=== PATIENT | male | born 1945 | race Caucasian/White ===

== ENCOUNTER 2018-11-24 13:25 | Observation (INO) ==
[2018-11-24] MEDS ORDERED: Sod Chloride 0.9% Inj 1,000 ML IV.CONT SCH (14:30)
--- NOTE | 2018-11-24 14:31 | ED ---
HPI General Chief complaint: Abdominal Pain Stated complaint: Abd pain/N/D since Thursday Time Seen by Provider: 11/24/18 14:25 Source: patient Mode of arrival: ambulatory Limitations: no limitations History of Present Illness HPI narrative: This 73-year-old male is complaining of abdominal pain. He has been having pain since Thursday. It is intermittent and somewhat migratory pain. He can be quite severe at times and other times is not so bad. It was very severe last night. Was again bad this morning pain is crampy in nature. It is aggravated when he eats. He has been belching more than usual. He feels like his stomach is distended. He has no history of abdominal surgery. He finished a course of amoxicillin yesterday which she took for sinus infection. He had a bowel movement this morning. He has had 3 colonoscopies in the past he thinks the last one was about 5 years ago and he is due for one. He drinks occasionally. He says the pain did not start after alcohol use Related Data Home Medications Medication Instructions Recorded Confirmed [id number]-[id number] 1 tab PO DAILY 11/24/18 11/24/18 [Multivitamin 50 Plus] Allergies Allergy/AdvReac Type Severity Reaction Status Date / Time No Known Allergies Allergy Verified 11/24/18 13:33 Review of Systems ROS: all other systems reviewed are negative [facility] Medical History Medical History Cervical herniated disc (Acute) Surgical History Surgical History H/O eye surgery (Acute) History of arthroscopy of both knees (Acute) Hx of tonsillectomy (Acute) Social History Social History Substance History: No History of Abuse Second Hand Smoke Exposure: No Smoking Status: Former smoker How Often Do You Have a Drink Containing Alcohol: 2 to 3 times a week Recent Travel in [facility] within the Last 8 Weeks: No Recent Out of Country Travel within the Last 8 Weeks: No Immunization History Tetanus Immunization: Unsure Exam Narrative Exam Narrative: GENERAL: Well-developed male SKIN: Focused skin assessment warm/dry. HEAD: Atraumatic. Normocephalic. EYES: Pupils equal and round. No scleral icterus. No injection or drainage. ENT: No nasal bleeding or discharge. Mucous membranes pink and moist. NECK: Trachea midline. No JVD. CARDIOVASCULAR: Regular rate and rhythm. No murmur appreciated. RESPIRATORY: No accessory muscle use. Clear to auscultation. Breath sounds equal bilaterally. GASTROINTESTINAL: Abdomen soft, there is some mild distention. He is tenderness without guarding or rigidity no hernias are felt. Bowel sounds diminished MUSCULOSKELETAL: No obvious deformities. No clubbing. No cyanosis. No edema. NEUROLOGICAL: Awake and alert. No obvious cranial nerve deficits. Motor grossly within normal limits. Normal speech. PSYCHIATRIC: Appropriate mood and affect; insight and judgment normal. Course Initial Documented Vital Signs Temperature 97.9 F 11/24/18 13:28 Pulse Rate 68 11/24/18 13:28 Respiratory Rate 16 11/24/18 13:28 Blood Pressure 138/94 H 11/24/18 13:28 Pulse Oximetry 96 11/24/18 13:28 Last Documented Vital Signs Temperature 97.9 F 11/24/18 13:28 Pulse Rate 70 11/24/18 15:21 Respiratory Rate 16 11/24/18 15:21 Blood Pressure 120/72 11/24/18 15:21 Pulse Oximetry 96 11/24/18 15:21 Sign Out Sign Out Data: Patient Sign Out occurred on 11/24/18 at 16:11. Patient's care was discussed, and care was transferred from Augustin Garibay MD to Kehinde De La Torre. Sign Out Comment: This gentleman presented with abdominal pain. His lipase is elevated at 1000. He is not a heavy drinker. CT scan and ultrasound are pending for further evaluation. He is having intermittent abdominal pain Last updated by Augustin Garibay MD at 11/24/18 15:53 Post-Handoff Eval: Received the patient at shift change for the following evaluation. CBC shows no evidence of leukocytosis no anemia no left shift and no evidence of any abnormal platelet count UA is negative for any evidence of UTI Electrolytes are within normal limits. Normal kidney and liver functions Elevated lipase consistent with pancreatitis at 1148 Although bilirubin and alk phos are within normal limits. Ultrasound read by radiologist as simple right renal cyst, punctate nonobstructive right renal calculi, echogenic liver most characteristic of hepatic steatosis, specifically no evidence of any pericholecystic fluid nor any thickened gallbladder wall nor any gallstones. Medical Decision Making MDM Narrative Medical decision making narrative: Lipase level is elevated to 1000. Medical Screen Exam Complete: Yes Emergency Medical Condition: Yes Differential Diagnosis Differential Diagnosis: Differential includes small bowel obstruction, pancreatitis, diverticulitis Lab Data Result diagrams: 11/24/18 14:50 11/24/18 14:50 Lab Results 11/24/18 11/24/18 11/24/18 Range/Units 14:30 14:50 14:50 CBC w Diff Auto diff final WBC 7.5 (4.0-11.0) th/mm3 RBC 5.33 (4.50-5.90) mil/mm3 Hgb 15.5 (13.0-17.0) gm/dL Hct 47.7 (39.0-51.0) % MCV 89.5 (80.0-100.0) fL MCH 29.1 (27.0-34.0) pg MCHC 32.5 (32.0-36.0) % RDW 12.6 (11.6-17.2) % Plt Count 278 (150-450) th/mm3 MPV 7.3 (7.0-11.0) fL Neut % (Auto) 67.1 (16.0-70.0) % Lymph % (Auto) 22.3 (9.0-44.0) % [place] % (Auto) 5.8 (0.0-8.0) % Eos % (Auto) 4.4 H (0.0-4.0) % Baso % (Auto) 0.4 (0.0-2.0) % Neut # (Auto) 5.1 (1.8-7.7) th/mm3 Lymph # (Auto) 1.7 (1.0-4.8) th/mm3 [place] # (Auto) 0.4 (0.0-0.9) th/mm3 Eos # (Auto) 0.3 (0.0-0.4) th/mm3 Baso # (Auto) 0.0 (0.0-0.2) th/mm3 WBC Differential . Differential Comment . Sodium 139 (136-145) meq/L Potassium 3.7 (3.5-5.1) meq/L Chloride 110 H (98-107) meq/L Carbon Dioxide 24.2 (21.0-32.0) meq/L Anion Gap 5 (5-15) meq/L BUN 15 (7-18) mg/dL Creatinine 0.87 (0.60-1.30) mg/dL Estimated GFR 87 L (>89) mL/min Random Glucose 135 H (74-106) mg/dL Calcium 8.3 L (8.5-10.1) mg/dL Magnesium 2.0 (1.5-2.5) mg/dL Total Bilirubin 0.3 (0.2-1.0) mg/dL AST 14 L (15-37) U/L ALT 31 (12-78) U/L Alkaline Phosphatase 62 (45-117) U/L Total Protein 6.5 (6.4-8.2) g/dL Albumin 3.2 L (3.4-5.0) g/dL Lipase 1148 H (73-393) U/L Ur Collection Type Clean catch Urine Color Yellow (Yellw/Straw) Urine Clarity Clear (Clear) Urine pH 5.5 (5.0-8.5) Ur Specific [place] Greater/equal 1.030 (1.002-1.035) Urine Protein Negative (Neg-Trace) mg/dL Urine Glucose (UA) Negative (Negative) mg/dL Urine Ketones Trace H (Negative) mg/dL Urine Occult Blood Trace (Negative) Urine Nitrate Negative (Negative) Urine Bilirubin Negative (Negative) Urine Urobilinogen 0.2 (Less than 2) mg/dL Ur Leukocyte Esterase Negative (Negative) Urine RBC 0-3 (0-3) /hpf Ur Squamous Epith Cells 0-5 (0-5) /hpf Micro UA Comment Culture not ind Ur Microscopic Review Microscopic reviewed Urine Culture Comments Culture not ind Imaging Data Radiologist's impression: Gallbladder Ultrasound 11/24/18 15:29 CONCLUSION: 1. Simple right renal cyst. 2. Punctate nonobstructing right renal calculi. 3. Echogenic liver most characteristic of hepatic steatosis. Discharge Plan Discharge Disposition Patient Disposition: ED Admit(ED Internal Use Only) Discharge Condition Condition: Stable Discharge Details Diagnosis: Pancreatitis Physicians Team ED Provider: Kehinde De La Torre Rxs /Orders / Referrals /Forms Prescriptions: No Action [id number] [Multivitamin 50 Plus] Tablet 1 tab PO DAILY RF: 0 Discharge Interventions Interventions: Vital Signs Last Done: 11/24/18 15:21 Status ED Status: With Doctor
[2018-11-24 15:04] LABS: Baso % (Auto) 0.4 % (0.0-2.0); Eos # (Auto) 0.3 th/mm3 (0.0-0.4); Eos % (Auto) 4.4 % (0.0-4.0); Hematocrit 47.7 % (39.0-51.0); Hemoglobin 15.5 gm/dL (13.0-17.0); Lymph # (Auto) 1.7 th/mm3 (1.0-4.8); Lymph % (Auto) 22.3 % (9.0-44.0); Mean Corpuscular HGB Conc 32.5 % (32.0-36.0); Mean Corpuscular Hemoglobin 29.1 pg (27.0-34.0); Mean Corpuscular Volume 89.5 fL (80.0-100.0); Mean Platelet Volume 7.3 fL (7.0-11.0); Mono # (Auto) 0.4 th/mm3 (0.0-0.9); Mono % (Auto) 5.8 % (0.0-8.0); Neut # (Auto) 5.1 th/mm3 (1.8-7.7); Neut % (Auto) 67.1 % (16.0-70.0); Platelet Count 278 th/mm3 (150-450); Red Blood Count 5.33 mil/mm3 (4.50-5.90); Red Cell Distribution Width 12.6 % (11.6-17.2); White Blood Count 7.5 th/mm3 (4.0-11.0)
[2018-11-24 15:06] LABS: Bilirubin,Urine Negative (Negative); Clarity,Urine Clear (Clear); Color,Urine Yellow (Yellw/Straw); Glucose,Urine (UA) Negative (Negative); Leukocyte Esterase,Urine Negative (Negative); Nitrite,Urine Negative (Negative); PH,Urine 5.5 (5.0-8.5); Specific Gravity,Urine Greater/Equal 1.030 (1.002-1.035); Urobilinogen,Urine 0.2 mg/dL (Less than 2)
[2018-11-24 15:19] LABS: Chloride 110 meq/L (98-107); Potassium 3.7 meq/L (3.5-5.1); Sodium 139 meq/L (136-145)
[2018-11-24 15:23] LABS: Albumin 3.2 g/dL (3.4-5.0); Anion Gap 5 meq/L (5-15); Blood Urea Nitrogen 15 mg/dL (7-18); Calcium 8.3 mg/dL (8.5-10.1); Carbon Dioxide 24.2 meq/L (21.0-32.0); Glucose,Random 135 mg/dL (74-106); Lipase 1148 U/L (73-393)
[2018-11-24 15:24] LABS: RBC,Urine 0-3 /hpf (0-3); Squamous Epithelial Cell,Urine 0-5 /hpf (0-5)
[2018-11-24 15:26] LABS: Alanine Aminotransferase 31 U/L (12-78); Aspartate Aminotransferase 14 U/L (15-37); Glomerular Filtration Rate 87 mL/min (>89)
[2018-11-24 15:28] LABS: Total Protein 6.5 g/dL (6.4-8.2)
[2018-11-24 15:29] LABS: Alkaline Phosphatase 62 U/L (45-117)
--- NOTE | 2018-11-24 16:18 | US ---
EXAM DATE: 11/24/2018 4:04 PM EST AGE/SEX: 73 years / Male INDICATIONS: Elevated lipase; gallstones. Abdominal pain. CLINICAL DATA: This is the patient's initial encounter. Patient reports that signs and symptoms have been present for 4 - 6 days and indicates a pain score of 5/10. MEDICAL/SURGICAL HISTORY: . Cervical herniated disk. . Eye surgery. Arthroscopy of both knees . Tonsillectomy. COMPARISON: No prior exams available for comparison. MEASUREMENTS: Liver:__ 17.0 cm. Common Bile Duct:__ 5mm. FINDINGS: Liver: Increased echogenicity without focal lesion or ductal dilatation. Portal Vein: Hepatopedal flow seen in portal vein. Common Duct: No intraluminal mass or stone visualized. Gallbladder: Demonstrates no wall thickening or pericholecystic fluid. No stones visualized. Pancreas: Visualized portions unremarkable. Right Kidney: Normal echogenicity without hydronephrosis. Simple cyst measures 4.9 cm. Several echog enic foci along the lower pole noted. Other: No ascites CONCLUSION: 1. Simple right renal cyst. 2. Punctate nonobstructing right renal calculi. 3. Echogenic liver most characteristic of hepatic steatosis. Electronically signed by: Eduardo Cross MD Board Certified Radiologist 11/24/2018 4:17 PM EST
[2018-11-24] MEDS ORDERED: Acetaminophen 325 MG Tablet PO PRN (17:17)
--- NOTE | 2018-11-24 17:41 | P.HPIM ---
History of Present Illness Primary Care Physician: Dannielle Junior Chief Complaint: Abdominal Pain History of Present Illness: Mr. Winter is a 73-year-old male. He is at the hospital secondary to abdominal pain. Lab work shows elevated lipase. He does not have a previous history of pancreatitis. Ultrasound shows no evidence of bile duct dilation or stone or biliary obstruction. he has no recent exposure to alcohol. He drinks alcohol occasionally never abusing alcohol. His last drink was about 4 days ago. He says for about 3 days he has been having some GI upset including some mild diarrhea followed by a day of nausea. Today he had acute onset of abdominal pain in his upper abdomen. He has no prior history of pancreatitis. CT scan is pending. Review of Systems Constitutional: No fevers, no chills no night sweats, no fatigue, no weakness Eyes: No eye pain, no blurry vision, no loss of vision ENT: No sore throat, no ear pain, no rhinorrhea Cardiovascular: No chest pain, no tachycardia, no palpitations, no syncope Respiratory: No wheezing, no cough, no shortness of breath Gastrointestinal: abdominal pain, no black tarry stools, no bright red blood per rectum, no vomiting, no diarrhea Musculoskeletal: No joint pain, no muscle cramps, no stiffness Integumentary: No rash, no ulcers, no drainage Neurologic: No sensory loss, no loss of motor function, no dizziness Psychiatric: No behavioral changes, no hallucinations, no suicidal ideations [facility] Medical History Medical History Cervical herniated disc (Acute) Surgical History Surgical History H/O eye surgery (Acute) History of arthroscopy of both knees (Acute) Hx of tonsillectomy (Acute) Social History Social History Substance History: No History of Abuse Second Hand Smoke Exposure: No Smoking Status: Former smoker How Often Do You Have a Drink Containing Alcohol: 2 to 3 times a week Recent Travel in [facility] within the Last 8 Weeks: No Recent Out of Country Travel within the Last 8 Weeks: No Immunization History Tetanus Immunization: Unsure Medications and Allergies Allergies Allergy/AdvReac Type Severity Reaction Status Date / Time No Known Allergies Allergy Verified 11/24/18 13:33 Home Medications Medication Instructions Recorded Confirmed Type [id number]-[id number]-[id number] 1 tab PO DAILY 11/24/18 11/24/18 History [Multivitamin 50 Plus] Active Medications: Active Medications Acetaminophen (Tylenol) 650 mg PO Q4H PRN PRN Reason: Temp > 100.4 Hydrocodone Bitart/Acetaminophen ([place] 10/325) 1 tab PO Q4H PRN PRN Reason: Pain 7 to 10 Hydrocodone Bitart/Acetaminophen ([place] 5/325) 1 tab PO Q4H PRN PRN Reason: Pain 3 to 6 Al Hydroxide/Mg Hydroxide (Milk Of Jacquie Foster) 30 ml PO Q12H PRN PRN Reason: Mild Constipation Sodium Chloride (Ns Inj) 1,000 mls @ 100 mls/hr IV.CONT .Q10H CARMITA Ondansetron HCl (Zofran Inj) 4 mg IV.PUSH Q6H PRN PRN Reason: NAUSEA OR VOMITING Sodium Chloride (Ns Flush) 2 ml IV.FLUSH BID CARMITA Sodium Chloride (Ns Flush) 2 ml IV.FLUSH PRN PRN PRN Reason: FLUSH AFTER USING IV ACCESS Physical Exam Vital signs: Vital Signs 11/24/18 13:28 11/24/18 15:21 Temperature 97.9 F Pulse Rate 68 70 Respiratory Rate 16 16 Blood Pressure 138/94 H 120/72 Pulse Oximetry 96 96 Intake & Output 11/23/18 11/24/18 11/24/18 18:59 06:59 18:59 Weight 93 kg Narrative: GENERAL: NAD, A&Ox3 HEAD: Normocephalic. NECK: Supple, trachea midline. No lymphadenopathy. EYES: No scleral icterus. No injection or drainage. CARDIOVASCULAR: Regular rate and rhythm without murmurs, gallops, or rubs. RESPIRATORY: Breath sounds equal bilaterally. No accessory muscle use. GASTROINTESTINAL: Abdomen soft, no distention. Mild abdominal tenderness is present in the epigastrium. MUSCULOSKELETAL: No cyanosis, or edema. SKIN: Warm and dry. NEURO: No focal neurological deficits. Results Labs CBC & Chem 7: 11/24/18 14:50 11/24/18 14:50 Imaging Impressions Gallbladder Ultrasound 11/24/18 15:29 CONCLUSION: 1. Simple right renal cyst. 2. Punctate nonobstructing right renal calculi. 3. Echogenic liver most characteristic of hepatic steatosis. Caprini VTE Risk Assessment Caprini VTE Risk Assessment: No/Low Risk (score <= 1) Caprini Risk Assessment Model: Point Value = 1 Point Value = 2 Point Value = 3 Point Value = 5 Age 41-60 Minor surgery BMI > 25 kg/m2 Swollen legs Varicose veins or History of unexplained or recurrent spontaneous Oral contraceptives or hormone replacement Sepsis (< 1 month) Serious lung disease, including pneumonia (< 1 month) Abnormal pulmonary function Acute myocardial infarction Congestive heart failure (< 1 month) History of inflammatory bowel disease Medical patient at bed rest Age 61-74 Arthroscopic surgery Major open surgery (> 45 min) Laparoscopic surgery (> 45 min) Malignancy Confined to bed (> 72 hours) Immobilizing plaster cast Central venous access Age >= 75 History of VTE Family history of VTE Factor V Leiden Prothrombin [id number] Lupus anticoagulant Anticardiolipin antibodies Elevated serum homocysteine Heparin-induced thrombocytopenia Other congenital or acquired thrombophilia Stroke (< 1 month) Elective arthroplasty Hip, pelvis, or leg fracture Acute spinal cord injury (< 1 month) Prophylaxis Regimen: Total Risk Factor Score Risk Level Prophylaxis Regimen 0-1 Low Early ambulation 2 Moderate Order ONE of the following: *Sequential Compression Device (SCD) *Heparin 5000 units SQ BID 3-4 Higher Order ONE of the following medications: *Heparin 5000 units SQ TID *Enoxaparin/Lovenox 40 mg SQ daily (WT < 150 kg, CrCl > 30 mL/min) *Enoxaparin/Lovenox 30 mg SQ daily (WT < 150 kg, CrCl > 10-29 mL/min) *Enoxaparin/Lovenox 30 mg SQ BID (WT < 150 kg, CrCl > 30 mL/min) AND/OR *Sequential Compression Device (SCD) 5 or more Highest Order ONE of the following medications: *Heparin 5000 units SQ TID (Preferred with Epidurals) *Enoxaparin/Lovenox 40 mg SQ daily (WT < 150 kg, CrCl > 30 mL/min) *Enoxaparin/Lovenox 30 mg SQ daily (WT < 150 kg, CrCl > 10-29 mL/min) *Enoxaparin/Lovenox 30 mg SQ BID (WT < 150 kg, CrCl > 30 mL/min) AND *Sequential Compression Device (SCD) Assessment and Plan Plan 73-year-old male admitted secondary to acute pancreatitis without prior medical history Acute pancreatitis IV hydration As needed pain treatments Low-fat diet Monitor lipase levels If no improvement in lipase overnight will consider further workup including HIDA scan DVT prophylaxis SCDs
--- NOTE | 2018-11-24 17:58 | CT ---
EXAM DATE: 11/24/2018 5:48 PM EST AGE/SEX: 73 years / Male INDICATIONS: Generalized abdominal pain for 5 days. CLINICAL DATA: This is the patient's initial encounter. Patient reports that signs and symptoms have been present for 4 - 6 days and indicates a pain score of 5/10. MEDICAL/SURGICAL HISTORY: None. Tonsillectomy. ORAL CONTRAST: No oral contrast ingested. RADIATION DOSE: 18.02 CTDI (mGy) COMPARISON: No prior exams available for comparison. TECHNIQUE: Multiple contiguous axial images were obtained through the abdomen and pelvis following b olus infusion of 91 ml Omnipaque 350 (iohexol) nonionic water-soluble contrast as a single exam dos e. No oral contrast ingested. Using automated exposure control and adjustment of the mA and/or kV ac cording to patient size, radiation dose was kept as low as reasonably achievable to obtain optimal di agnostic quality images. DICOM format image data is available electronically for review and comparis on. FINDINGS: Lower Lungs: 5 mm pleural-based nodular density in the posterior left lower lobe. Liver: Punctate calcification in the left lobe of the liver. Mild diffuse hepatic hypodensity indicat ing hepatic steatosis. Gallbladder within normal limits. Spleen: Homogeneous density without enlargement. Pancreas: Unremarkable without mass or calcification. Kidneys: 3.8 cm exophytic posterior right mid pole cyst. Several subcentimeter rounded hypodensities in the kidneys too small to characterize but statistically most likely to represent cysts. No eviden ce of hydronephrosis. Adrenal Glands: Unremarkable. Aorta: The aorta and proximal iliac vessels are grossly unremarkable without aneurysmal dilation. Bowel/Mesentery: No evidence of bowel dilatation. No free air or free fluid. Appendix within normal limits. There is diffuse hazy opacity in the mesentery centrally along with multiple subcentimeter me senteric lymph nodes. Abdominal Wall: Intact. Retroperitoneum: No evidence of adenopathy in the retrocrural, para-aortic, or deep pelvic regions. Bladder: Contours are smooth. Reproductive Organs: Enlarged prostate measuring 5 cm in greatest transverse dimension. Inguinal: The inguinal region is unremarkable without evidence of adenopathy. Bony Structures: Osteoarthritic findings of the right sacroiliac joint and mild osteoarthritic findi ngs of the hips. CONCLUSION: 1. "Sun mesentery" appearance with mildly prominent mesenteric lymph nodes are likely reactive. Fi ndings are nonspecific but can be seen with venous congestion and mesenteric adenitis. Lymph nodes do not meet size criteria for pathologic lymphadenopathy. 2. Enlarged prostate. 3. Mild hepatic steatosis. 4. 5 mm pleural based nodular density in the left lower lobe. Recommend a follow-up noncontrast ches t CT. Electronically signed by: Gil Reynoso MD Board Certified Radiologist 11/24/2018 5:56 PM EST
[2018-11-24] MEDS: Sod Chloride 0.9% Inj 1,000 ML IV.CONT SCH ×2 (20:51→23:49)
[2018-11-25] MEDS: Sod Chloride 0.9% Inj 1,000 ML IV.CONT SCH (05:21)
[2018-11-25 08:03] LABS: Baso % (Auto) 0.1 % (0.0-2.0); Eos # (Auto) 0.5 th/mm3 (0.0-0.4); Eos % (Auto) 6.3 % (0.0-4.0); Hematocrit 43.5 % (39.0-51.0); Hemoglobin 14.9 gm/dL (13.0-17.0); Lymph # (Auto) 2.3 th/mm3 (1.0-4.8); Lymph % (Auto) 29.8 % (9.0-44.0); Mean Corpuscular HGB Conc 34.3 % (32.0-36.0); Mean Corpuscular Hemoglobin 30.8 pg (27.0-34.0); Mean Corpuscular Volume 89.7 fL (80.0-100.0); Mean Platelet Volume 7.2 fL (7.0-11.0); Mono # (Auto) 0.5 th/mm3 (0.0-0.9); Mono % (Auto) 6.9 % (0.0-8.0); Neut # (Auto) 4.3 th/mm3 (1.8-7.7); Neut % (Auto) 56.9 % (16.0-70.0); Platelet Count 248 th/mm3 (150-450); Red Blood Count 4.84 mil/mm3 (4.50-5.90); White Blood Count 7.6 th/mm3 (4.0-11.0)
[2018-11-25 08:06] LABS: Chloride 110 meq/L (98-107); Potassium 3.6 meq/L (3.5-5.1); Sodium 140 meq/L (136-145)
[2018-11-25 08:10] LABS: Albumin 2.9 g/dL (3.4-5.0); Anion Gap 4 meq/L (5-15); Blood Urea Nitrogen 11 mg/dL (7-18); Calcium 8.1 mg/dL (8.5-10.1); Carbon Dioxide 25.7 meq/L (21.0-32.0); Glucose,Random 87 mg/dL (74-106); Lipase 289 U/L (73-393)
[2018-11-25 08:13] LABS: Alanine Aminotransferase 28 U/L (12-78); Aspartate Aminotransferase 14 U/L (15-37); Glomerular Filtration Rate Greater Than 89 mL/min (>89)
[2018-11-25 08:16] LABS: Alkaline Phosphatase 60 U/L (45-117)
--- NOTE | 2018-11-25 10:41 | P.DS ---
DS: Providers Date of admission: 11/24/18 16:41 Primary care physician: Dannielle Junior Brief History from admission: Mr. Winter is a 73-year-old male. He is at the hospital secondary to abdominal pain. Lab work shows elevated lipase. He does not have a previous history of pancreatitis. Ultrasound shows no evidence of bile duct dilation or stone or biliary obstruction. he has no recent exposure to alcohol. He drinks alcohol occasionally never abusing alcohol. His last drink was about 4 days ago. He says for about 3 days he has been having some GI upset including some mild diarrhea followed by a day of nausea. Today he had acute onset of abdominal pain in his upper abdomen. He has no prior history of pancreatitis. CT scan is pending. DS: Summary Mr. Winter is a 73-year-old male. He was admitted secondary to acute pancreatitis. Based on history etiology of pancreatitis was suspected to be viral. IV hydration overnight has caused resolution of his elevated lipase levels. Patient reports that he has resolution of his pain symptoms. Imaging revealed no apparent involvement of the biliary system and a CT scan showed no pancreatic or biliary pathology. CT scan did show some mesenteric inflammation which is likely reactive. Additionally he had a 5 mm nodule at the left lung base. This is discussed with the patient. 3-month CT order for comparison provided. At this point medically the patient stable and cleared for discharge to home. Discharge today. Time Spent with Patient Total time spent providing and/or coordinating discharge services: Less than 30 minutes Quality: VTE Deep Vein Thrombosis/Pulmonary Embolism Present on Admission: No Results Labs on day of discharge: Labs from last 24 hours 11/25/18 11/25/18 11/24/18 07:09 07:09 14:50 CBC w Diff Auto diff final WBC 7.6 RBC 4.84 Hgb 14.9 Hct 43.5 MCV 89.7 MCH 30.8 MCHC 34.3 RDW 12.0 Plt Count 248 MPV 7.2 Neut % (Auto) 56.9 Lymph % (Auto) 29.8 [place] % (Auto) 6.9 Eos % (Auto) 6.3 H Baso % (Auto) 0.1 Neut # (Auto) 4.3 Lymph # (Auto) 2.3 [place] # (Auto) 0.5 Eos # (Auto) 0.5 H Baso # (Auto) 0.0 WBC Differential . Differential Comment . Sodium 140 139 Potassium 3.6 3.7 Chloride 110 H 110 H Carbon Dioxide 25.7 24.2 Anion Gap 4 L 5 BUN 11 15 Creatinine 0.83 0.87 Estimated GFR Greater than 89 87 L Random Glucose 87 135 H Calcium 8.1 L 8.3 L Magnesium 2.0 Total Bilirubin 0.5 0.3 AST 14 L 14 L ALT 28 31 Alkaline Phosphatase 60 62 Total Protein 6.0 L 6.5 Albumin 2.9 L 3.2 L Lipase 289 1148 H Ur Collection Type Urine Color Urine Clarity Urine pH Ur Specific [place] Urine Protein Urine Glucose (UA) Urine Ketones Urine Occult Blood Urine Nitrate Urine Bilirubin Urine Urobilinogen Ur Leukocyte Esterase Urine RBC Ur Squamous Epith Cells Micro UA Comment Ur Microscopic Review Urine Culture Comments 11/24/18 11/24/18 14:50 14:30 CBC w Diff Auto diff final WBC 7.5 RBC 5.33 Hgb 15.5 Hct 47.7 MCV 89.5 MCH 29.1 MCHC 32.5 RDW 12.6 Plt Count 278 MPV 7.3 Neut % (Auto) 67.1 Lymph % (Auto) 22.3 [place] % (Auto) 5.8 Eos % (Auto) 4.4 H Baso % (Auto) 0.4 Neut # (Auto) 5.1 Lymph # (Auto) 1.7 [place] # (Auto) 0.4 Eos # (Auto) 0.3 Baso # (Auto) 0.0 WBC Differential . Differential Comment . Sodium Potassium Chloride Carbon Dioxide Anion Gap BUN Creatinine Estimated GFR Random Glucose Calcium Magnesium Total Bilirubin AST ALT Alkaline Phosphatase Total Protein Albumin Lipase Ur Collection Type Clean catch Urine Color Yellow Urine Clarity Clear Urine pH 5.5 Ur Specific [place] Greater/equal 1.030 Urine Protein Negative Urine Glucose (UA) Negative Urine Ketones Trace H Urine Occult Blood Trace Urine Nitrate Negative Urine Bilirubin Negative Urine Urobilinogen 0.2 Ur Leukocyte Esterase Negative Urine RBC 0-3 Ur Squamous Epith Cells 0-5 Micro UA Comment Culture not ind Ur Microscopic Review Microscopic reviewed Urine Culture Comments Culture not ind Impressions ITS Impressions Abdomen/Pelvis CT 11/24/18 14:25 CONCLUSION: 1. "Sun mesentery" appearance with mildly prominent mesenteric lymph nodes are likely reactive. Findings are nonspecific but can be seen with venous congestion and mesenteric adenitis. Lymph nodes do not meet size criteria for pathologic lymphadenopathy. 2. Enlarged prostate. 3. Mild hepatic steatosis. 4. 5 mm pleural based nodular density in the left lower lobe. Recommend a follow-up noncontrast chest CT. Gallbladder Ultrasound 11/24/18 15:29 CONCLUSION: 1. Simple right renal cyst. 2. Punctate nonobstructing right renal calculi. 3. Echogenic liver most characteristic of hepatic steatosis. Discharge Plan Discharge Disposition Patient Disposition: 01 Discharge Home Discharge Condition Condition: Stable Discharge Order Discharge Orders: Discharge Order (Routine); Ordered 11/25/18 Ordered By: Marlon Reyes Discharge Details Anticipated Discharge Date: 11/25/18 Physicians Team Attending Provider: Marlon Reyes Rxs /Orders / Referrals /Forms Prescriptions: Continue [id number] [Multivitamin 50 Plus] Tablet 1 tab PO DAILY RF: 0 Ambulatory Orders / Order Sets / DME: CT chest wo IV con (Routine) Timeframe: 3 Months Location: Determined by Patient Ordered By: Marlon Reyes Referrals: Dannielle Junior [Other] - See Instructions (Please follow up in physician's office for follow up appointment within (2 weeks of discharge.)) Discharge Instructions Patient Printed Instructions: Pancreatitis (DC) Status ED Status: Left Department
== END 2018-11-25 12:24 | disposition home or self-care (01) ==
LOC: PHEDA 13:25 → PHED 13:25 → UNDODISOB 17:10 → PHEDA 19:50 → PH3 20:29
PROVIDERS: ADMIT Hospitalist; ATTEND Hospitalist
DX: N40.0 Benign prostatic hyperplasia without lower urinary tract symptoms; K76.0 Fatty (change of) liver, not elsewhere classified; K85.90 Acute pancreatitis without necrosis or infection, unspecified; Z87.891 Personal history of nicotine dependence; N28.1 Cyst of kidney, acquired; N20.0 Calculus of kidney
CPT/HCPCS: 74177; 76705; 80053; 81001; 83690; 83735; 85025; 90760; 96360; 96361; 99285; G0378; J7030; Q9967